=== PATIENT | female | born 1955 | race Two or more races ===

== ENCOUNTER 2023-03-13 08:22 | Emergency (ER) | payer MEDICARE, OTHER ==
[2023-03-13] MEDS ORDERED: Ondansetron 4 MG/2 ML SDV IVPUSH ONE (08:54)
[2023-03-13] MEDS ORDERED: Sodium Chloride 0.9% 1,000 ML IV STA (08:54)
[2023-03-13] MEDS ORDERED: HYDROmorphone 0.5 MG/0.5 ML Syringe IVPUSH ONE (08:55)
[2023-03-13] MEDS ORDERED: Sodium Chloride 0.9% 10 ML Syringe FLUSH ONE (09:27)
[2023-03-13] MEDS ORDERED: Iopamidol 612 MG/ML 100 ML Bottle IVPUSH ONE (09:27)
[2023-03-13 09:32] LABS: APPEARANCE,URINE CLEAR (Clear); BILIRUBIN,URINE 1+ (Negative); COLOR,URINE DARK YELLOW (Yellow); GLUCOSE,URINE NEGATIVE (Negative); KETONES,URINE TRACE (Negative); LEUKOCYTE ESTERASE,URINE TRACE (Negative); NITRITE,URINE NEGATIVE (Negative); OCCULT BLOOD,URINE 1+ (Negative); PH,URINE 5.5 (5.0-8.0); PROTEIN,URINE 1+ (Negative); UROBILINOGEN,URINE 0.2 (0.2-1.0)
[2023-03-13 09:47] LABS: BASOPHILS PERCENT AUTO 0.3 % (0.0-1.0); EOSINOPHILS ABSOLUTE AUTO 0.1 K/mm3 (0.0-0.4); EOSINOPHILS PERCENT AUTO 1.3 % (0.0-6.0); HEMATOCRIT 42.8 % (37.0-47.0); HEMOGLOBIN 14.7 gm/dl (12.0-16.0); IMMATURE GRAN ABSOLUTE AUTO 0.01 K/mm3 (0.00-0.05); IMMATURE GRAN PERCENT AUTO 0.1 % (0.0-0.4); LYMPHOCYTES ABSOLUTE AUTO 3.2 K/mm3 (1.0-4.8); LYMPHOCYTES PERCENT AUTO 46.1 % (24.0-44.0); MEAN CORPUSCULAR HEMOGLOBIN 31.1 pg (28.0-32.0); MEAN CORPUSCULAR HGB CONC 34.3 g/dl (32.0-36.0); MEAN CORPUSCULAR VOLUME 90.7 fl (83.0-99.0); MEAN PLATELET VOLUME 9.3 fl (9.4-12.3); MONOCYTES ABSOLUTE AUTO 0.5 K/mm3 (0.0-0.8); MONOCYTES PERCENT AUTO 7.1 % (0.0-8.0); NEUTROPHILS ABSOLUTE AUTO 3.1 K/mm3 (1.8-7.7); NEUTROPHILS PERCENT AUTO 45.1 % (41.0-71.0); PLATELET COUNT,PLT 239 K/mm3 (150-400); RED BLOOD CELL COUNT 4.72 M/mm3 (4.10-5.30); WHITE BLOOD CELL COUNT,WBC 6.92 K/mm3 (3.9-11.3)
[2023-03-13 09:48] LABS: BACTERIA,URINE MANY /hpf (FEW); EPITHELIAL CELLS,URINE 20-30 /hpf (0-5); HYALINE CASTS,URINE 0-5 /lpf (0-5); MUCUS,URINE MANY /hpf (FEW); RBC,URINE 0-5 /hpf (0-5)
[2023-03-13 10:15] LABS: A/G RATIO 1.1 (1-2); ALBUMIN 3.7 g/dl (3.4-5.0); ANION GAP 12.6 (5-15); BILIRUBIN TOTAL 0.5 mg/dL (0.2-1.0); BUN/CREATININE RATIO 15.7 (14-18); CALCIUM 8.8 mg/dL (8.5-10.1); CREATININE 0.7 mg/dL (0.55-1.02); EST CRCL DRUG DOSING (CG) 58.04 mL/min; POTASSIUM,K 3.6 mEq/L (3.5-5.1); PROTEIN TOTAL,TP 7.2 g/dl (6.4-8.2)
[2023-03-13] MEDS: Sodium Chloride 0.9% 10 ML Syringe FLUSH PRN ×2 (10:16→10:29)
== END 2023-03-13 12:00 | disposition home or self-care (01) ==
LOC: JD.ED 08:22
DX: R10.30 Lower abdominal pain, unspecified (principal); M54.50 Low back pain, unspecified
CPT/HCPCS: 36415; 74177; 80053; 81001; 83690; 85025; 96374; 96375; 99284; J1170; J2405; J3490; J7030; Q9967